=== PATIENT | male | born 1965 | race Caucasian/White ===

== ENCOUNTER → 2024-12-10 09:59 | Outpatient (CLI) | payer OTHER, SELFPAY | LOC: RESP 09:59 | PROVIDERS: PCP Family Medicine; Referring Provider Internal Medicine Critical Care Medicine; Visit Provider Internal Medicine Critical Care Medicine | DX: R06.09 Other forms of dyspnea (principal); Z87.891 Personal history of nicotine dependence; Z86.16 Personal history of COVID-19; R94.2 Abnormal results of pulmonary function studies; J45.40 Moderate persistent asthma, uncomplicated | CPT/HCPCS: 94060; 94726; 94729 ==